=== PATIENT | female | born 1960 | race Caucasian/White ===

== ENCOUNTER → 2016-11-09 | Outpatient (CLI) | payer OTHER ==
--- NOTE | 2016-11-09 12:33 | RAD ---
DATE: 11/09/2016 EXAM: DIGITAL DIAGNOSTIC BILATERAL, BREAST BILATERAL HISTORY: History of ovarian carcinoma. Palpable abnormality in the right breast. COMPARISON: Multiple prior screening mammograms most recent 11/12/2015, 08/29/2014 and 07/10/2013. The breast parenchyma shows scattered fibroglandular densities. Breast parenchyma level B. FINDINGS: Bilateral 2-D diagnostic mammogram: Bilateral 2-D CC and MLO views of both breasts with BB marker in the right breast over the area of palpable abnormality. No suspicious mass, calcification or architectural distortion. No significant change from prior examination. Patient will proceed to diagnostic ultrasound for evaluation of palpable abnormalities. Bilateral diagnostic ultrasound: In the area of palpable concern left breast at 1:00 8 cm from the nipple, there is no suspicious mass or fluid collection. In the area of palpable concern at 10 :00 8 cm from the nipple in the right breast there is no suspicious mass or fluid collection IMPRESSION: No suspicious mammographic or ultrasound finding in the areas of palpable concern. BI-RADS CATEGORY: 1 NEGATIVE RECOMMENDED FOLLOW-UP: Return to screening mammogram. PQRS compliance statement: Patient information was entered into a reminder system with a target due date November 2017 for the next mammogram. Mammography is a sensitive method for finding small breast cancers, but it does not detect them all and is not a substitute for careful clinical examination. A negative mammogram does not negate a clinically suspicious finding and should not result in delay in biopsying a clinically suspicious abnormality. "Our facility is accredited by the [employer] Mammography [employer]." KIN
== END | disposition home or self-care (01) ==
LOC: MAMMO 09:11
PROVIDERS: ATTEND Nurse Practitioner Family
DX: N63 Unspecified lump in breast (principal); Z85.43 Personal history of malignant neoplasm of ovary
CPT/HCPCS: 76641; G0204; 77066

== ENCOUNTER → 2017-11-19 | Outpatient (CLI) | payer OTHER ==
--- NOTE | 2017-11-23 16:36 | RAD ---
History: Routine screening. Technique: Bilateral digital mammographic routine views were obtained with CAD - computer aided detection. Comparison: 11/09/2016, 11/12/15, 08/29/2014, 07/10/2013. Findings: Breast Tissue Density B :The breast tissue is composed of mixed fatty and fibroglandular tissue. There are no suspicious masses, microcalcifications or areas of architectural distortion. Impression: Negative mammogram. Recommendation: In the absence of new clinical symptoms or change in physical exam, annual screening mammography is recommended. BI-RADS Category 1: Negative. A mammogram does not have 100% sensitivity and therefore a negative imaging study should not delay further work up of a suspicious abnormality. The patient will receive a letter with the results in the mail. Patient information is entered into the reminder system with a target due date for the next screening mammogram. The patient will receive a reminder. "Our facility is accredited by the [employer] Mammography [employer]."
== END | disposition home or self-care (01) ==
LOC: MAMMO 15:07
DX: Z12.31 Encounter for screening mammogram for malignant neoplasm of breast (principal); Z85.43 Personal history of malignant neoplasm of ovary
CPT/HCPCS: 77067

== ENCOUNTER → 2018-12-07 | Outpatient (CLI) | payer OTHER ==
--- NOTE | 2018-12-09 17:50 | RAD ---
BILATERAL SCREENING MAMMOGRAM, 3-D History: Routine screening. Comparison: 11/12/2015, 11/09/2016, and 11/19/2017 mammographic exams. Technique: MLO and CC digital tomosynthesis (3D) images obtained. Radiologist reviewed these images on dedicated workstation. Findings: Breast Tissue Density B : There are scattered areas of fibroglandular density. There are no dominant masses, suspicious microcalcifications, or architectural distortion. IMPRESSION: No mammographic evidence of malignancy. Recommend routine screening. BI-RADS category 1: Negative. The images were reviewed with computer-aided detection. Patient information is entered into reminder system with a target due date for the next screening mammogram. Mammography is the most sensitive method for finding small breast cancers, but it does not detect them all and is not a substitute for careful clinical examination. A negative mammogram does not negate a clinically suspicious finding and should not result in delay in biopsying a clinically suspicious abnormality. "Our facility is accredited by the [employer] Mammography [employer]." Electronically signed by: Hu Sidhu MD (12/09/2018 5:47 PM) [facility]
== END | disposition home or self-care (01) ==
LOC: MAMMO 14:44
PROVIDERS: ATTEND Family Medicine
DX: Z12.31 Encounter for screening mammogram for malignant neoplasm of breast (principal)
CPT/HCPCS: 77063; 77067

== ENCOUNTER → 2020-01-15 | Outpatient (CLI) | payer OTHER ==
--- NOTE | 2020-01-15 18:58 | RAD ---
EXAMINATION: Bilateral screening mammogram, 01/15/2020 1:00 PM CLINICAL INDICATION: 59-year-old woman presenting for screening mammogram. COMPARISON: 12/07/2018 TECHNIQUE: Digital bilateral full-field CC and MLO views, and CC and MLO tomosynthesis views of the breasts were obtained. CAD was utilized. FINDINGS: The breasts contain scattered areas of fibroglandular density. There is no mass, suspicious calcification, or architectural distortion. IMPRESSION: 1. No mammographic evidence of malignancy. 2. BI-RADS 1: Negative. 3. Routine annual screening mammogram is recommended in 1 year. The patient will receive a reminder letter by mail when she is due for her next exam. Electronically signed by: Shawna Lua MD (01/15/2020 6:55 PM) [id number]
== END | disposition home or self-care (01) ==
LOC: MAMMO 12:54
PROVIDERS: ATTEND Nurse Practitioner Family
DX: Z12.31 Encounter for screening mammogram for malignant neoplasm of breast (principal)
CPT/HCPCS: 77067

== ENCOUNTER → 2021-01-17 | Outpatient (CLI) | payer OTHER ==
--- NOTE | 2021-01-17 11:46 | RAD ---
EXAM: Bilateral digital screening mammogram with tomosynthesis. HISTORY: 60-year-old female presents for screening mammography. TECHNIQUE: Full-field digital craniocaudal and mediolateral oblique 2D and 3D tomosynthesis images of both breasts are obtained for evaluation. Computer aided detection was applied. COMPARISON: 01/15/2020 and 12/07/2018 BREAST PARENCHYMAL DENSITY: Level B - Scattered fibroglandular densities. FINDINGS: There are small adjacent nodular densities within the 9:00 position of the right breast at anterior to mid depth, without a clear correlate on prior studies. There is no suspicious calcificati on or architectural distortion within either breast. IMPRESSION: BI-RADS Category 0: Incomplete. Additional imaging needed. RECOMMENDATION: Further evaluation with spot compression views of nodularity within the 9:00 position of the right breast is recommended. Sonographic imaging can be performed if deemed indicated based o n additional mammographic findings. If your mammogram demonstrates that you have dense breast tissue, which could hide abnormalities, and if you have other risk factors for breast cancer that have been identified, you might benefit from s upplemental screening tests that may be suggested by your ordering physician. Dense breast tissue, i n and of itself, is a relatively common condition. This information is not provided to cause undue c oncern, but rather to raise your awareness and to promote discussion with your physician regarding th e presence of other risk factors, in addition to dense breast tissue. A report of your mammography re sults will be sent to you and your physician. You should contact your physician if you have any ques tions or concerns regarding this report. Mammography is a sensitive method for finding small breast cancers, but it does not detect them all a nd is not a substitute for careful clinical examination. A negative mammogram does not negate a clin ically suspicious finding and should not result in delay in biopsying a clinically suspicious abnorma lity. PQRS compliance statement - Patient information was entered into a reminder system with a target due date for the next mammogram. "Our facility is accredited by the [employer] Mammography [employer]." Electronically signed by: Trudy Talbot MD (01/17/2021 11:43 AM) [id number]
== END ==
LOC: MAMMO 10:21
PROVIDERS: ATTEND Nurse Practitioner Family
DX: Z12.31 Encounter for screening mammogram for malignant neoplasm of breast (principal)
CPT/HCPCS: 77063; 77067

== ENCOUNTER → 2021-02-17 | Outpatient (CLI) | payer OTHER ==
--- NOTE | 2021-02-20 08:56 | RAD ---
CLINICAL INDICATION: JACKIE WEISS, who is 60 years of age, presents for further evaluation of an abnormality seen on prior screening mammogram 01/17/2021 COMPARISON: Prior mammographic imaging 01/17/2021 01/15/2020 12/07/2018 TECHNIQUE: Diagnostic views of the right breast were obtained, utilizing digital technique. BREAST COMPOSITION: There are scattered fibroglandular densities. MAMMOGRAM FINDINGS: On the spot compression views, the previously seen focal asymmetries are less conspicuous, nearly eff aced. Therefore further evaluation with ultrasound was performed. ULTRASOUND FINDINGS: Targeted ultrasound of the mammographic area of concern was performed. 8-10:00 position right breast: Parenchymal tissue of normal echotexture is present. A few mildly prom inent ducts are seen. IMPRESSION: 1. No mammographic evidence of malignancy in either breast. RECOMMENDATION: In the absence of new clinical symptoms or change in physical exam, annual screening mammography is r ecommended BIRADS 2: BENIGN Electronically signed by: Nicola Vang MD (02/20/2021 8:53 AM) [id number]
== END ==
LOC: MAMMO 12:38
PROVIDERS: ATTEND Nurse Practitioner Family
DX: R92.8 Other abnormal and inconclusive findings on diagnostic imaging of breast (principal)
CPT/HCPCS: 76641; 77065